=== PATIENT | female | born 1985 | race Caucasian/White ===

== ENCOUNTER → 2020-05-15 | Outpatient (CLI) | payer OTHER ==
[~2020-05-15] MED LIST: VANCOMYCIN HCL1 GM IV; ZOFRAN4 MG PO
[2020-05-15 14:24] LABS: BUN/CREATININE RATIO 6 (0-10)
== END ==
LOC: OPSV 13:32
PROVIDERS: Internal Medicine
DX: A49.02 Methicillin resistant Staphylococcus aureus infection, unspecified site (principal); I38 Endocarditis, valve unspecified; M00.9 Pyogenic arthritis, unspecified
CPT/HCPCS: 80053; 80202

== ENCOUNTER → 2020-05-20 | Outpatient (CLI) | payer OTHER | LOC: OPSV 13:00 | DX: I38 Endocarditis, valve unspecified (principal); M00.021 Staphylococcal arthritis, right elbow; B95.62 Methicillin resistant Staphylococcus aureus infection as the cause of diseases classified elsewhere | CPT/HCPCS: G0463 ==